=== PATIENT | female | born 1935 | race Caucasian/White ===

== ENCOUNTER 2017-02-05 14:02 | Emergency (ER) | payer OTHER ==
[~2017-02-05] VITALS: Ht 167.6 cm; Wt 65.8 kg
[2017-02-05 15:07] LABS: Basophils # (auto) 0.1 uL; Basophils % (auto) 0.9 % (0.0-2.0); Eosinophils # (auto) 0.2 uL; Eosinophils % (auto) 3.6 % (0.0-7.0); Hematocrit 42.4 % (36.0-46.0); Hemoglobin 13.7 g/dL (12.2-16.2); Lymphocytes # (auto) 1.6 uL; Lymphocytes % (auto) 26.6 % (10.0-50.0); Mean Corpuscular Hgb Conc. 32.3 g/dL (32.0-36.0); Mean Corpuscular Volume 86.8 fL (80.0-100.0); Mean Platelet Volume 7.5 fL (7.4-10.4); Monocytes # (auto) 0.7 uL; Monocytes % (auto) 11.8 % (0.0-12.0); Neutrophils # (auto) 3.4 uL; Neutrophils % (auto) 57.1 % (37.0-80.0); Platelet Count (auto) 327 10^3/uL (140-450); Red Cell Distribution Width 14.6 % (11.6-16.0)
[2017-02-05 15:28] LABS: Albumin 3.3 g/dL (3.4-5.0); Anion Gap 8 (5-15); Aspartate Aminotransferase 15 U/L (15-37); Blood Urea Nitrogen 17 mg/dL (7-18); Calcium 8.8 mg/dL (8.5-10.1); Carbon Dioxide 27 mmol/L (21-32); Chloride 99 mmol/L (98-107); GFR African American 97 mL/min; GFR Non-African American 80 mL/min; Glucose 94 mg/dL (74-106); Magnesium 2.2 mg/dL (1.6-2.6); Potassium 3.5 mmol/L (3.5-5.1); Sodium 134 mmol/L (136-145)
[2017-02-05 15:33] LABS: Alkaline Phosphatase 112 U/L (45-117); Bilirubin, Total 0.3 mg/dL (0.2-1.0); Total Protein 6.9 g/dL (6.4-8.2)
[2017-02-05] MEDS ORDERED: SODIUM CHLORIDE 0.9% 250 ML IV ONE (16:08)
[2017-02-05] MEDS ORDERED: KETOROLAC TROMETH 30 MG/ML 1ML VIAL IV ONE (16:15)
[2017-02-05] MEDS ORDERED: METOCLOPRAMIDE HCL 5MG/ml INJ 2ml VIAL IV ONE (16:15)
[2017-02-05 16:57] LABS: Urine Bilirubin Negative (Negative); Urine Blood Negative /uL (Negative); Urine Color Yellow (Yellow); Urine Glucose Normal (Normal); Urine Ketone Negative (Negative); Urine Nitrite Negative (Negative); Urine RBC 1 /hpf (0 - 4); Urine Squamous Epithelial Cell FEW /hpf (<5); Urine Urobilinogen Normal (Negative)
[2017-02-05 17:22] VITALS: BP 116/67
== END 2017-02-05 17:51 | disposition home or self-care (01) ==
LOC: ER 14:02
DX: S46.912A Strain of unspecified muscle, fascia and tendon at shoulder and upper arm level, left arm, initial encounter (principal); M50.11 Cervical disc disorder with radiculopathy, high cervical region; M50.122 Cervical disc disorder at C5-C6 level with radiculopathy; M51.14 Intervertebral disc disorders with radiculopathy, thoracic region; M50.13 Cervical disc disorder with radiculopathy, cervicothoracic region; I10 Essential (primary) hypertension; X58.XXXA Exposure to other specified factors, initial encounter; Y93.89 Activity, other specified; Y99.8 Other external cause status; Y92.89 Other specified places as the place of occurrence of the external cause
CPT/HCPCS: 36415; 71020; 72040; 80053; 81001; 83735; 84484; 85025; 93005; 96361; 96374; 96375; 99285; J1885; J2765; J7030

== ENCOUNTER 2017-05-30 12:05 | Inpatient (IN) | payer OTHER ==
[~2017-05-30] VITALS: Ht 170.2 cm; Wt 64.4 kg
[2017-05-30 12:49] LABS: Basophils # (auto) 0 uL; Basophils % (auto) 0.4 % (0.0-2.0); CONDITION Y; Eosinophils # (auto) 0 uL; Eosinophils % (auto) 0.3 % (0.0-7.0); Hematocrit 45.5 % (36.0-46.0); Hemoglobin 15.4 g/dL (12.2-16.2); Lymphocytes # (auto) 1.1 uL; Lymphocytes % (auto) 11.7 % (10.0-50.0); Mean Corpuscular Hemoglobin 28.4 pg (28.0-32.0); Mean Corpuscular Hgb Conc. 33.9 g/dL (32.0-36.0); Mean Corpuscular Volume 83.7 fL (80.0-100.0); Monocytes # (auto) 0.8 uL; Monocytes % (auto) 7.8 % (0.0-12.0); Neutrophils # (auto) 7.7 uL; Neutrophils % (auto) 79.8 % (37.0-80.0); Platelet Count (auto) 355 10^3/uL (140-450); Red Cell Distribution Width 15.4 % (11.6-16.0); White Blood Cell 9.7 10^3/uL (4.4-10.8)
[2017-05-30 12:51] LABS: Urine RBC None Seen /hpf (0 - 4)
[2017-05-30 13:06] LABS: Albumin 3.7 g/dL (3.4-5.0); Anion Gap 15 (5-15); Aspartate Aminotransferase 24 U/L (15-37); BUN/Creatinine Ratio 10.7; Blood Urea Nitrogen 8 mg/dL (7-18); Calcium 8.9 mg/dL (8.5-10.1); Carbon Dioxide 19 mmol/L (21-32); Chloride 86 mmol/L (98-107); GFR African American 96 mL/min; GFR Non-African American 79 mL/min; Glucose 134 mg/dL (74-106); Sodium 120 mmol/L (136-145)
[2017-05-30 13:11] LABS: Alkaline Phosphatase 159 U/L (45-117); Bilirubin, Total 0.6 mg/dL (0.2-1.0); Total Protein 7.7 g/dL (6.4-8.2)
[2017-05-30 13:42] LABS: Urine Bilirubin Negative (Negative); Urine Blood Negative /uL (Negative); Urine Color Yellow (Yellow); Urine Glucose Normal (Normal); Urine Ketone Negative (Negative); Urine Nitrite Negative (Negative); Urine Squamous Epithelial Cell FEW /hpf (<5); Urine Urobilinogen Normal (Negative); Urine pH 7.5 (5.0-8.0)
[2017-05-30] MEDS ORDERED: POTASSIUM CHL 10% (20 MEQ/15ML) ORAL SOLN PO ONE (14:45)
[2017-05-30] MEDS ORDERED: cefTRIAXone 1GM/50ML D5W 50 ML IV ONE (14:45)
[2017-05-30] MEDS ORDERED: SODIUM CHLORIDE 0.9% 1,000 ML IV ONE (14:45)
[2017-05-30] MEDS ORDERED: HYDROcodone-ACET 10/325MG TAB PO ONE (15:15)
[2017-05-30 15:46] LABS: B-Type Natriuretic Peptide 24.41 pg/mL (0-100)
[2017-05-30 15:50] LABS: Temperature: 23.4 C (20.0-25.0)
[2017-05-30] MEDS ORDERED: PROMETHAZINE HCL 25 MG/ML 1ML IV PRN (16:00)
[2017-05-30] MEDS ORDERED: TEMAZEPAM 15 MG CAP PO PRN (16:00)
[2017-05-30] MEDS ORDERED: LORazepam 0.5 MG TAB PO PRN (16:00)
[2017-05-30] MEDS ORDERED: MILK OF MAGNESIA 30ML SUSP PO PRN (16:00)
[2017-05-30] MEDS ORDERED: NITROGLYCERIN 0.4 MG SL TAB SL PRN (16:00)
[2017-05-30] MEDS: SODIUM CHLORIDE 0.9% 1,000 ML IV SCH ×2 (16:00→22:08)
[2017-05-30] MEDS ORDERED: MORPHINE SULFATE 4 MG/ML SYRG IV PRN ×2 (16:00)
[2017-05-30] MEDS ORDERED: LACTULOSE 20Gm/30ML SOLN PO PRN (16:00)
[2017-05-30] MEDS ORDERED: ACETAMINOPHEN 500 MG TAB PO PRN (16:00)
[2017-05-30] MEDS: ENOXAPARIN SOD 40 MG/0.4 ML SYRINGE SC SCH (17:04)
[2017-05-30 21:38] VITALS: BP 147/69
[2017-05-30 22:00] VITALS: BP 120/74
[2017-05-30] MEDS: HYDROcodone-ACET 5/325MG TAB PO PRN (22:09)
[2017-05-30 22:30] VITALS: BP 120/74
[2017-05-31] MEDS ORDERED: AML5T PO (00:47)
[2017-05-31] MEDS ORDERED: ROPI2TAB31 PO (00:47)
[2017-05-31] MEDS ORDERED: HYDR-4663 PO (00:47)
[2017-05-31] MEDS ORDERED: LEVO100I PO (00:47)
[2017-05-31] MEDS ORDERED: SUCR1TAB38 PO (00:47)
[2017-05-31] MEDS ORDERED: BUPR1TAB78 PO (00:47)
[2017-05-31] MEDS ORDERED: POTA20TA53 PO (00:47)
[2017-05-31] MEDS ORDERED: FLUO20CA19 PO (00:47)
[2017-05-31] MEDS ORDERED: OME20T PO (00:47)
[2017-05-31] MEDS ORDERED: TEMA7.5C11 PO (00:47)
[2017-05-31] MEDS ORDERED: DOCU-94 PO (00:47)
[2017-05-31] MEDS ORDERED: ATO40T PO (00:47)
[2017-05-31] MEDS ORDERED: TRIA75TA55 PO (00:47)
[2017-05-31 05:00] VITALS: BP 120/69
[2017-05-31 07:02] LABS: Albumin 3.2 g/dL (3.4-5.0); BUN/Creatinine Ratio 13.1; Bilirubin, Total 0.5 mg/dL (0.2-1.0); Calcium 8.5 mg/dL (8.5-10.1); Potassium 3.4 mmol/L (3.5-5.1); Total Protein 6.1 g/dL (6.4-8.2)
[2017-05-31 08:00] VITALS: BP 144/108
[2017-05-31] MEDS: HYDROcodone-ACET 5/325MG TAB PO PRN ×2 (08:04→13:36)
[2017-05-31] MEDS: ENOXAPARIN SOD 40 MG/0.4 ML SYRINGE SC SCH (08:11)
[2017-05-31 09:00] VITALS: BP 144/108
[2017-05-31] MEDS ORDERED: cefTRIAXone 1GM/50ML D5W 50 ML IV SCH (09:00)
[2017-05-31] MEDS: SODIUM CHLORIDE 0.9% 1,000 ML IV SCH (11:26)
[2017-05-31] MEDS ORDERED: DOCUSATE SOD 100 MG CAP PO PRN (12:00)
[2017-05-31] MEDS ORDERED: POTASSIUM CHL 20 Meq TABLET PO SCH (12:30)
[2017-05-31] MEDS ORDERED: FLUoxetine HCL 20 MG CAP PO ONE (12:30)
[2017-05-31] MEDS ORDERED: MULTIPLE VITAMIN TAB PO SCH (12:30)
[2017-05-31] MEDS ORDERED: PANTOPRAZOLE 40 MG TAB PO SCH (12:30)
[2017-05-31] MEDS ORDERED: amLODIPine BESYLATE 5 MG TAB PO SCH (12:30)
[2017-05-31] MEDS ORDERED: HCTZ 25 MG TAB PO ONE (12:30)
[2017-05-31] MEDS ORDERED: LEVOTHYROXINE SODIUM 88 MCG TAB PO ONE (12:30)
[2017-05-31 13:27] VITALS: BP 138/65
[2017-05-31] MEDS ORDERED: SUCRALFATE 1 GM TAB PO SCH (14:00)
[2017-05-31 15:06] VITALS: BP 138/65
[2017-05-31] MEDS ORDERED: buPROPion HCL 75 MG TAB PO SCH (22:00)
[2017-05-31] MEDS ORDERED: TEMAZEPAM 15 MG CAP PO ONE (22:00)
[2017-05-31] MEDS ORDERED: ROPINEROLE PO SCH (22:00)
[2017-05-31] MEDS ORDERED: ATORVASTATIN 20 MG TAB PO SCH (22:00)
[2017-06-01] MEDS ORDERED: LEVOTHYROXINE SODIUM 88 MCG TAB PO SCH (07:00)
[2017-06-01] MEDS ORDERED: buPROPion HCL 75 MG TAB PO SCH (10:00)
[2017-06-01] MEDS ORDERED: FLUoxetine HCL 20 MG CAP PO SCH (10:00)
[2017-06-01] MEDS ORDERED: HCTZ 25 MG TAB PO SCH (10:00)
== END 2017-05-31 15:52 | disposition home or self-care (01) | DRG 690 ==
LOC: ER 12:08 → TELE 12:09 → TELE-CENTR 21:35
PROVIDERS: ADMIT Internal Medicine; ATTEND Internal Medicine
DX: N39.0 Urinary tract infection, site not specified (principal); E87.1 Hypo-osmolality and hyponatremia; E78.5 Hyperlipidemia, unspecified; G47.30 Sleep apnea, unspecified; G89.29 Other chronic pain; I10 Essential (primary) hypertension; R32 Unspecified urinary incontinence; E89.0 Postprocedural hypothyroidism; Z96.651 Presence of right artificial knee joint; I70.0 Atherosclerosis of aorta; E87.6 Hypokalemia; T50.2X5A Adverse effect of carbonic-anhydrase inhibitors, benzothiadiazides and other diuretics, initial encounter; Y92.89 Other specified places as the place of occurrence of the external cause
CPT/HCPCS: 36415; 71020; 80053; 81001; 83880; 84484; 85025; 87040; 87086; 93005; 96365; 99291; J0696